=== PATIENT | female | born 1995 | race Caucasian/White ===

== ENCOUNTER 2017-11-27 04:53 | Emergency (ER) | END 2017-11-27 08:14 | disposition home or self-care (01) ==

== ENCOUNTER 2018-08-28 12:39 | Emergency (ER) | END 2018-08-28 17:12 | disposition home or self-care (01) ==

== ENCOUNTER → 2018-08-31 | Outpatient (CLI) | END | disposition home or self-care (01) ==

== ENCOUNTER 2019-04-15 13:44 | Inpatient (IN) | payer MEDICAID ==
[~2019-04-15] VITALS: Ht 152.4 cm; Wt 70.0 kg
[~2019-04-15 13:44] MED LIST: ACET500C5 PO; CEPH-443 PO; ELEC100080 PO; FLUT9.9S NASAL; GUAI5SYR2 PO; IBUP-1542 PO; OSEL75CA23 PO; PREN-39 PO
[2019-04-15 14:25] VITALS: Ht 152.4 cm; Wt 70.0 kg
[2019-04-15 14:28] VITALS: BP 108/57; PULSE 72; RESP 18
[2019-04-15] MEDS ORDERED: CARBOPROST 250 MCG INJ IM PRN ×2 (14:30→23:30)
[2019-04-15] MEDS ORDERED: OXYTOCIN 30 UNITS/LR 500 ML IV PRN ×2 (14:30→23:30)
[2019-04-15] MEDS ORDERED: METHYLERGONOVINE 0.2 MG INJ IM PRN ×2 (14:30→23:30)
[2019-04-15] MEDS ORDERED: CEFAZOLIN 2 GM/50 ML (PMX) 50 ML IVPB ONE (14:30)
[2019-04-15] MEDS ORDERED: MISOPROSTOL 200 MCG TAB PR PRN ×2 (14:30→23:30)
[2019-04-15] MEDS: LACTATED RINGER'S 1,000 ML IV SCH ×2 (14:36→22:25)
[2019-04-15] MEDS ORDERED: OXYTOCIN 30 UNITS/LR 500 ML IV SCH (15:30)
--- NOTE | 2019-04-15 16:45 | PREAC ---
Date/Time of Note Date/Time of Note DATE: 04/15/19 TIME: 16:44 Anesthesia Eval and Record Evaluation Time Pre-Procedure Interview DATE: 04/15/19 TIME: 16:44 Age 23 Sex female NPO: 8 hrs Preoperative diagnosis IUP Planned procedure Repeat Csection Past Medical History Past Medical History: Includes GI: Morbid obesity : : Surgery & Anesthesia Issues No known issue Meds Anticoagulation: No Beta Heber within 24 hr: No Reason Beta Heber not given: Pt. not on B-Heber Active Scripts Cephalexin* (Keflex*) 500 Mg Capsule, 500 MG PO BID for 7 Days, CAP Prov:MARNI BIRMINGHAM-C 08/28/18 Acetaminophen* (Tylophen*) 500 Mg Capsule, 1 CAP PO Q6H PRN for PAIN AND OR ELEVATED TEMP, #20 CAP Prov:MARNI BIRMINGHMA-C 08/28/18 Fluticasone Propionate (Flonase Allergy Relief) 9.9 Ml [place].susp, 2 SPRAY NASAL DAILY, #1 BOTTLE TO EACH NOSTRIL Prov:MARNI BIRMINGHAMC 11/27/17 Electrolyte,Oral (Pedialyte) 1,000 Ml Solution, 100 ML PO Q6 PRN for FEVER, #1000 ML Prov:MARNI BIRMINGHAMC 11/27/17 Ibuprofen* (Motrin*) 600 Mg Tab, 600 MG PO Q6, #30 TAB Prov:MARNI BIRMINGHAM-C 11/27/17 Acetaminophen* (Tylophen*) 500 Mg Capsule, 1 CAP PO Q6H PRN for PAIN AND OR ELEVATED TEMP, #30 CAP Prov:MARNI BIRMINGHAMC 11/27/17 Guaifenesin-Dextromethorphan* (Robitussin* DM) 100MG/10MG/5ML Syrup, 10 ML PO Q6H for 5 Days, ML Prov:MARNI BIRMINGHAMC 11/27/17 Oseltamivir Phosphate* (Tamiflu*) 75 Mg Capsule, 75 MG PO BID for 5 Days, CAP Prov:MARNI BIRMINGHAM-C 11/27/17 Reported Medications Vits W-Ca,Fe,Fa(<1MG) ( Vitamins) 1 Tab Tablet, 1 TAB PO DAILY for 7 Days 05/10/14 Current Medications Lactated Ringer's 1,000 ml @ 125 mls/hr Q8H IV Last administered on 04/15/19at 14:36; Admin Dose 125 MLS/HR; Start 04/15/19 at 14:16 Oxytocin/Lactated Ringer's 500 ml @ 0 mls/hr ONCE PRN IV .VAGINAL BLEEDING; Start 04/15/19 at 14:30 Methylergonovine Maleate (Methergine) 0.2 mg ONCE PRN IM .VAGINAL BLEEDING; Start 04/15/19 at 14:30 Carboprost Tromethamine (Hemabate) 250 mcg ONCE PRN IM .VAGINAL BLEEDING; Start 04/15/19 at 14:30 Misoprostol (Cytotec) 1,000 mcg ONCE PRN [place] .VAGINAL BLEEDING; Start 04/15/19 at 14:30 Oxytocin/Lactated Ringer's 500 ml @ 125 mls/hr POST IV ; Start 04/15/19 at 15:30 Meds reviewed: Yes Allergies Coded Allergies: No Known Allergy (Unverified , 05/10/14) Allergies Reviewed: Yes Labs/Studies Labs Reviewed: Reviewed by anesthesiologist Result Diagram: 04/15/19 1420 Laboratory Tests 04/15/19 14:20 Blood Bank Test 04/15/19 14:20 Antibody Screen NEGATIVE Blood Type O POSITIVE Rh Immune Globulin Candidate NO test: Positive Studies: ECG Pre-procedure Exam Last vitals Vital Signs Date Temp Pulse Resp B/P (MAP) Pulse Ox O2 O2 Flow FiO2 Time Delivery Rate 04/15/19 98.6 72 18 108/57 Room Air 14:28 (74) Airway: Adequate mouth opening, Adequate thyromental dist Mallampati: Mallampati II Teeth: Normal Lung: Normal Heart: Normal ASA Physical Status ASA physical status: 2 Emergency: None Planned Anesthetic Neuraxial: Spinal Planned Pain Management Sub-arachniod narcotics, Parenteral pain med Pre-operative Attestations Prior to commencing anesthesia and surgery, the patient was re-evaluated, there was verification of: *The patient's identity *The results of appropriate recent lab work and preoperative vital signs *The above evaluation not changing prior to induction *Anesthetic plan, risk benefits, alternative and complications discussed with patient/family; questions answered; patient/family understands, accepts and wishes to proceed. JAYLENE MITCHELL MD Apr 15, 2019 16:45
[2019-04-15] MEDS ORDERED: morphine SULFATE/PF (10 MG/10 ML) INJ ONE (16:51)
[2019-04-15] MEDS ORDERED: ONDANSETRON 4 MG INJ ONE (16:51)
[2019-04-15] MEDS ORDERED: OXYTOCIN 10 UNIT INJ ONE ×2 (16:51→17:44)
[2019-04-15] MEDS ORDERED: PHENYLephrine 10 MG INJ ONE (17:00)
--- NOTE | 2019-04-15 17:08 | HP ---
Date/Time of Note Date/Time of Note DATE: 04/15/19 TIME: 17:05 OB - History Hx of Present Free Text/Dictation 23-year-old female 2 para 1 at 39 weeks and 2 days gestation admitted for repeat section Last Menstrual Period: Jul 14, 2018 Estimated Due Date: Apr 20, 2019 : 2 Para: 1 Care: Good Care Ultrasounds: Normal mid trimester US Obstetrical Complications: None Medical Complications: None Past Family/Social History * Past Medical, Surgical, Family and Obstetric Histories reviewed from chart. Blood Type: O+ Rubella: immune RPR/VDRL: Negative GBS Status: Negative HBsAG: Negative OB Admission Exam Vital Signs Vital Signs Vital Signs Date Temp Pulse Resp B/P (MAP) Pulse Ox O2 O2 Flow FiO2 Time Delivery Rate 04/15/19 98.6 72 18 108/57 Room Air 14:28 (74) Physical Exam HEENT: WNL Heart: Rhythm Normal Lungs: Clear, Equal Abdomen: WNL Extremities: Normal Reflexes: Normal Cervical Dilatation: None Effacement: 0% Station: -3 Membranes: Intact Heart Rate: 140's Accelerations: Accelerations Present Decelerations: No Decelerations Varibility: Marked Contractions on Admission: None Last 72 hours Lab Results CBC & BMP 04/15/19 14:20 OB Assessment/Plan Other Assessment: Term gestation Previous Other plan: Repeat delivery JANAE VASQUEZ MD Apr 15, 2019 17:08
[2019-04-15] MEDS ORDERED: FENTAnyl 50 MCG/ML VIAL ONE (17:36)
--- NOTE | 2019-04-15 18:25 | OPR ---
Operative Report Planned Procedure Procedure date Apr 15, 2019 Procedure(s) Repeat section Performed by see signature line Excavating Contractor: CEASAR SWANSON MD Anesthesiologist: JAYLENE MITCHELL MD Pre-procedure diagnosis Term gestation Previous [id number] Anesthesia Type: Lotdk1t spinal Post-Procedure Post-procedure diagnosis Status post repeat Findings Live Baby in OT position Clear amniotic fluid Normal-appearing right and left fallopian tubes and ovaries Estimated Blood Loss: 500 - 600 mls Specimen(s) none Grafts/Implant(s) none Complication(s) none Pt Condition post procedure: stable Disposition: PACU Procedure Description Under satisfactory anaesthesia a Pfannenstiel incision was made two fingerbreadth above and parallel to the symphysis of pubis around the previous scar and previous scar was removed Incision was extended laterally to the border of the Recti muscles on either sides. Incision was carried down with sharp and blunt dissection until fascia was reached. Anterior Recti muscle fascia was incised in mid portion and incision extended laterally to the border of skin incision. Fascia was mobilized from muscle superiorly and Recti muscles were from midline using sharp and blunt dissection. Peritoneum was visualized; Avoiding bowel and bladder it was incised . Incision was extended superiorly and inferiorly. Bladder blade was placed. Posterior peritoneum covering the lower segment of the uterus and lower segment of the uterus were incised.Low transverse uterine incision was made on lower segment of the uterus. Incision extended laterally to the border of Round Lig. on either sides and baby was delivered from OT. position . Amniotic fluid appeared clear. Cord blood was obtained and cord had 3 vessels . Placenta was delivered spontaneously and appeared intact and complete. Intrauterine cavity was rubbed with a laparotomy sponge. Uterine incision was closed in 2 layers using running stitches of No1 Monocryl. Hemostasis appeared secure. Ovaries and Fallopian tubes were within normal limits. Announcing needle, lap sponge and instrument count to be correct abdomen was closed in layers as follows: Peritoneum and Recti muscles with running stitches of 2-0 Vicryl. Fascia with running stitch of No 1 PDS. Subcutaneous tissue with running stitches of 2-0 Monocryl and skin was closed using destiny. Patient tolerated the procedure well and was transferred to [facility] in good c ondition. JANAE VASQUEZ MD Apr 15, 2019 18:25
[2019-04-15] MEDS ORDERED: KETOROLAC 30 MG INJ IV STA (18:26)
[2019-04-15] MEDS ORDERED: ACETAMINOPHEN 500 MG TAB PO STA (18:26)
[2019-04-15] MEDS ORDERED: AZITHROMYCIN 500MG/NS (PMX) 250 ML IVPB ONE ×2 (18:30→20:00)
--- NOTE | 2019-04-15 18:33 | PAC ---
Date/Time of Note Date/Time of Note DATE: 04/15/19 TIME: 18:32 Post-Anesthesia Notes Post-Anesthesia Note Last documented vital signs Vital Signs Date Temp Pulse Resp B/P (MAP) Pulse Ox O2 O2 Flow FiO2 Time Delivery Rate 04/15/19 98.6 72 18 108/57 Room Air 14:28 (74) Activity: WNL Respiratory function: WNL Cardiovascular function: WNL Mental status: Baseline Pain reasonably controlled: Yes Hydration appropriate: Yes Nausea/Vomiting absent: Yes Comments BP:112/56, P:88, Spo2:100%, T:98,8 JAYLENE MITCHELL MD Apr 15, 2019 18:33
[2019-04-15] MEDS ORDERED: KETOROLAC 30 MG INJ IV PRN (19:00)
[2019-04-15] MEDS ORDERED: DIPHENHYDRAMINE 50 MG INJ IV PRN (19:00)
[2019-04-15] MEDS ORDERED: morphine 2 MG INJ IV PRN (19:00)
[2019-04-15] MEDS ORDERED: ONDANSETRON 4 MG INJ IV PRN (19:00)
[2019-04-15] MEDS ORDERED: NALOXONE (0.4 MG/ML) INJ IV PRN (19:00)
[2019-04-15 22:35] VITALS: BP 90/43; PULSE 61; RESP 18
[2019-04-15] MEDS ORDERED: LACTATED RINGER'S 1,000 ML IV SCH (23:05)
[2019-04-15] MEDS ORDERED: LANOLIN HPA 1 PKT TOP PRN (23:30)
[2019-04-15] MEDS ORDERED: OXYCODONE/ACETAMINOPHEN (5/325) TAB PO PRN (23:30)
[2019-04-15] MEDS ORDERED: NA PHOSPHATE/BIPHOS 133 ML ENEMA PR PRN (23:30)
[2019-04-15] MEDS ORDERED: HYDROCODONE/APAP (5/325) TAB PO PRN (23:30)
[2019-04-16] VITALS: BP 82/43; PULSE 61; RESP 18
[2019-04-16] MEDS: CLINDAMYCIN 300 MG CAP PO SCH ×4 (00:55→18:15)
[2019-04-16] MEDS: CEFAZOLIN 2 GM/50 ML (PMX) 50 ML IVPB SCH ×3 (00:55→15:34)
[2019-04-16 04:16] VITALS: BP 81/51; PULSE 60; RESP 18
[2019-04-16 08:00] VITALS: BP 94/56; PULSE 55; RESP 18
[2019-04-16] MEDS ORDERED: LACTATED RINGER'S 1,000 ML IV SCH (08:10)
[2019-04-16] MEDS: SENNA/DOCUSATE NA (8.6MG/50MG) TAB PO SCH ×2 (08:41→21:58)
[2019-04-16] MEDS ORDERED: BISACODYL 10 MG SUPP PR ONE (10:30)
[2019-04-16 12:00] VITALS: BP 98/59; PULSE 70; RESP 18
--- NOTE | 2019-04-16 15:11 | PN ---
Date/Time of Note Date/Time of Note DATE: 04/16/19 TIME: 15:11 Assessment/Plan VTE Prophylaxis VTE Prophylaxis Intervention: ambulation Lines/Catheters IV Catheter Type (from Nrs): Saline Lock Assessment/Plan Assessment/Plan Status post postop day #1 Continue to ambulate patient Continue to advance diet Continue with supportive care Subjective 24 Hr Interval Summary Passing flatus but no bowel movement Constitutional: no complaints, improved, ambulates, BM, flatus, urine output Pain Control: well controlled Exam/Review of Systems Vital Signs Vitals Vital Signs Date Temp Pulse Resp B/P (MAP) Pulse Ox O2 O2 Flow FiO2 Time Delivery Rate 04/16/19 98.1 70 18 98/59 (72) 98 Room Air 12:00 Intake and Output 04/15/19 04/15/19 04/16/19 1515:00 23:00 07:00 IntakeIntake Total 250 ml OutputOutput Total 720 ml 180 ml BalanceBalance -470 ml -180 ml Exam Free Text/Dictation Abdomen is soft bowel sounds are present and abdomen does not seem distended Incision is covered Constitutional: alert, oriented, well developed Psych: no complaints, nl mood/affect Head: normocephalic, atraumatic Eyes: nl conjunctiva, EOMI, nl lids, nl sclera ENMT: nl external ears & nose, nl lips & teeth, nl nasal mucosa & septum, mucosa pink and moist Neck: supple, non-tender Respiratory: clear to auscultation, normal air movement Cardiovascular: regular rate and rhythm, nl pulses Gastrointestinal: soft, nl liver, spleen, non-tender Musculoskeletal: nl extremities to inspection, nl gait and stance Extremities: normal pulses Neurological: NATURAL GAS ENGINEER II-XII intact, nl mental status, nl speech, nl strength Skin: nl turgor, rash or lesions Lymph: nl lymph nodes Results Result Diagram: 04/16/19 0720 JANAE VASQUEZ MD Apr 16, 2019 15:11
[2019-04-16 16:00] VITALS: BP 89/53; PULSE 70; RESP 18
[2019-04-16] MEDS ORDERED: HYDROCODONE/APAP (5/325) TAB PO PRN (18:59)
[2019-04-16 20:45] VITALS: BP 99/60; PULSE 82; RESP 18
[2019-04-16] MEDS: IBUPROFEN 800 MG TAB PO SCH (21:58)
[2019-04-17] MEDS: CLINDAMYCIN 300 MG CAP PO SCH ×4 (00:54→17:59)
[2019-04-17] MEDS ORDERED: BISACODYL 10 MG SUPP PR ONE (01:30)
[2019-04-17 03:44] VITALS: BP 105/60; PULSE 67; RESP 17
[2019-04-17] MEDS: IBUPROFEN 800 MG TAB PO SCH ×3 (05:40→21:17)
[2019-04-17 08:00] VITALS: BP 96/52; PULSE 65; RESP 18
[2019-04-17] MEDS: SENNA/DOCUSATE NA (8.6MG/50MG) TAB PO SCH ×2 (08:38→21:16)
--- NOTE | 2019-04-17 13:50 | DS ---
Date/Time of Note Date/Time of Note Home today or next day DATE: 04/17/19 TIME: 13:49 Obstetrical Discharge Record Final Diagnosis Final Diagnosis: Term delivered Other Final Diagnosis Status post Section Section: Repeat Condition on Discharge Physical Assessment Last Vitals: See nurse's notes Voiding: Yes Bowel Movement: Yes Breast: Soft, non-tender, Filling Fundus: Firm Abdomen and Incision: Abdomen is soft and nontender Incision is healing well without induration and or erythema Calf Tenderness: No Patient Condition: Good JANAE VASQUEZ MD Apr 17, 2019 13:50
--- NOTE | 2019-04-17 13:57 | DS ---
Date/Time of Note Date/Time of Note DATE: 04/17/19 TIME: 13:50 Discharge Summary Admission/Discharge Info Admit Date/Time Apr 15, 2019 at 13:44 Discharge Date/Time April 17April 182018 Discharge Diagnosis Status post delivery Patient Condition: Good Procedures Repeat section Hx of Present Illness 23-year-old female had repeat section Hospital Course He had uncomplicated hospitalization course Was tolerating diet well ambulating without problems Discharge home on his second or third day with good prognosis and condition fully ambulatory on regular diet Home Meds Active Scripts Cephalexin* (Keflex*) 500 Mg Capsule, 500 MG PO BID for 7 Days, CAP Prov:MARNI BIRMINGHAM-C 08/28/18 Acetaminophen* (Tylophen*) 500 Mg Capsule, 1 CAP PO Q6H PRN for PAIN AND OR ELEVATED TEMP, #20 CAP Prov:MARNI BIRMINGHAM-C 08/28/18 Fluticasone Propionate (Flonase Allergy Relief) 9.9 Ml [place].susp, 2 SPRAY NASAL DAILY, #1 BOTTLE TO EACH NOSTRIL Prov:MARNI BIRMINGHAM-C 11/27/17 Electrolyte,Oral (Pedialyte) 1,000 Ml Solution, 100 ML PO Q6 PRN for FEVER, #1000 ML Prov:MARNI BIRMINGHAM-C 11/27/17 Ibuprofen* (Motrin*) 600 Mg Tab, 600 MG PO Q6, #30 TAB Prov:MARNI BIRMINGHAM-C 11/27/17 Acetaminophen* (Tylophen*) 500 Mg Capsule, 1 CAP PO Q6H PRN for PAIN AND OR ELEVATED TEMP, #30 CAP Prov:MARNI BIRMINGHAM-C 11/27/17 Guaifenesin-Dextromethorphan* (Robitussin* DM) 100MG/10MG/5ML Syrup, 10 ML PO Q6H for 5 Days, ML Prov:MARNI BIRMINGHAM-C 11/27/17 Oseltamivir Phosphate* (Tamiflu*) 75 Mg Capsule, 75 MG PO BID for 5 Days, CAP Prov:MARNI BIRMINGHAMC 11/27/17 Reported Medications Vits W-Ca,Fe,Fa(<1MG) ( Vitamins) 1 Tab Tablet, 1 TAB PO DAILY for 7 Days 05/10/14 Follow-up Plan She was asked to refer to clinic in 4 days for staple removal Primary Care Provider Care Physician No Primary Time spent on discharge: > 30 minutes JANAE VASQUEZ MD Apr 17, 2019 13:57
--- NOTE | 2019-04-17 13:59 | PD.PPDC ---
TOOL WORKER Discharge Instruction Provider Information Physician Information 23-year-old female had repeat section Diagnosis [id number] Final Diagnosis: Sswwq8w Status post Condition [id number] Patient Condition: Fwrxl9l Good Diet Lhksd3Nt Diet: Twoge5z Resume Regular Diet Activity/Restrictions Ubgzl4Jg Activity: Nuzqc2k May Shower Gzfsh8Dd Restrictions: Gvaek5q No Exercising No Lifting Nothing in the Vagina Yhilx4Is Return to Work or School: Txush4x Jun 17, 2019 Wound/Drain Care Instructions [id number] Wound/Drain Care Instructions: Ytwem6b Keep clean and dry Follow-up Follow-up with Physician: 4, Day/Days (In clinic for staple removal) Return to clinic for Fxtnc9Cn BUSINESS PROCESS REPRESENTATIVE Instructions: Winim9p Fever greater than 101 Chills Mzvcr2Jq OB Instructions: Crzmf5v Breast Tenderness Depression Comment: Pelvic rest no hard activity for 2 months Ekmur4Vt Surgical Instructions: Hstsy2u Incisional Drainage Incisional Redness JANAE VASQUEZ MD Apr 17, 2019 13:59
[2019-04-17] MEDS ORDERED: ACETAMINOPHEN 325 MG TAB PO PRN (14:00)
[2019-04-17] MEDS ORDERED: ACET325T33 PO (14:00)
[2019-04-17] MEDS ORDERED: IBUP800T48 PO (14:01)
[2019-04-17 15:37] VITALS: BP 102/74; PULSE 66; RESP 18
[2019-04-17 20:05] VITALS: BP 108/68; PULSE 62; RESP 18
[2019-04-18] MEDS: CLINDAMYCIN 300 MG CAP PO SCH ×3 (00:24→11:59)
[2019-04-18 04:10] VITALS: BP 105/57; PULSE 67; RESP 18
[2019-04-18] MEDS: IBUPROFEN 800 MG TAB PO SCH (05:48)
[2019-04-18 08:00] VITALS: BP 100/55; PULSE 72; RESP 18
[2019-04-18] MEDS: SENNA/DOCUSATE NA (8.6MG/50MG) TAB PO SCH (09:00)
[2019-04-18] MEDS ORDERED: DIPHTH/TET/ACEL PERTUSS (ADULT) 0.5 ML VIAL IM* ONE (09:00)
[2019-04-18] MEDS ORDERED: MEASLES,MUMPS,RUBELLA VACCINE INJ SC* ONE (09:00)
--- NOTE | 2019-04-19 14:05 | DELSUM ---
Delivery Summary A-C Datetime Report Generated by N: 04/19/2019 14:05 DELIVERY PERSONNEL Patient Access Coordinator: RONI, BANDAR MATERNAL INFORMATION Delivery Anesthesia: Spinal Medications in Delivery: SEE ANESTHESIA NOTE Delivery QBL (ml): 600 Placenta Cultured: No Maternal Complications: None LABOR SUMMARY EDC: 04/20/2019 00:00 (Annotations: Data stored by [facility] on behalf of user) No. Babies in Womb: 1 Attempted: No Labor Anesthesia: None LABOR INFORMATION Reason for Induction: Not Applicable Oxytocin: N/A Group B Beta Strep: Positive Antibiotics # of Doses: 1 Antibiotics Time of Last Dose: 04/15/2019 16:50 Steroids Given: None Reason Steroids Not Administered: Not Applicable MEMBRANES Membranes Rupture Method: Artificial Rupture of Membranes: 04/15/2019 17:33 Length of Rupture (hr): 0.03 Amniotic Fluid Color: Clear Amniotic Fluid Amount: Small Amniotic Fluid Odor: Normal STAGES OF LABOR Stage 3 hr: 0 Stage 3 min: 1 CSECTION DELIVERY Primary Indication: Repeat Elective CSection Urgency: Elective CSection Incidence: Repeat Labor: No Labor Elective: Nonelective CSection Incision: Lower Uterine Transverse BABY A INFORMATION Delivery Date/Time: 04/15/2019 17:35 Method of Delivery: Born in Route : No : N/A Forceps: N/A Vacuum Extraction: Successful Shoulder Dystocia : No ASSISTED DELIVERY BABY A Catheter Prior to Procedure: Yes Vacuum Number of Pulls: 2 Vacuum Number of PopOffs: 1 Vacuum Inspector Printed Circuit Boards: [place] Total Time Vacuum Applied: 50 SECS Vacuum/Forceps Comment: CONTROLLED BY MD SHOULDER DYSTOCIA BABY A Delivery Date/Time: 04/15/2019 17:35 PRESENTATION/POSITION BABY A Presentation: Cephalic Cephalic Presentation: Vertex Vertex Position: N/A Breech Presentation: N/A PLACENTA INFORMATION BABY A Placenta Delivery Time : 04/15/2019 17:36 Placenta Method of Delivery: Manual Removal Placenta Status: Delivered SCORES BABY A Heart Rate 1 min: >100 bpm Resp Effort 1 min: Good Cry Reflex Irritability 1 min: Cough/Sneeze/Pulls Away Muscle Tone 1 min: Active Motion Color 1 min: Blue/Pale Resuscitation Effort 1 min: Tactile Stimulation; Oxygen SCORE 1 MIN: 8 Heart Rate 5 min: >100 bpm Resp Effort 5 min: Good Cry Reflex Irritability 5 min: Cough/Sneeze/Pulls Away Muscle Tone 5 min: Active Motion Color 5 min: Body [place], Extremit Blue Resuscitation Effort 5 min: Tactile Stimulation SCORE 5 MIN: 9 INFORMATION BABY A Gestational Age at Delivery: 39.2 Gestational Status: Full Term- 39- 40.6 Weeks Outcome : Liveborn Condition : Stable Sex: Female IDENTIFICATION/MEDS BABY A ID Band Number: [id number] ID Band Location: Right Leg; Left Arm Sensor Applied: Yes Sensor Number: [id number] Sensor Location : Cord Clamp Vitamin K Given : Not Given Erythromycin Given: Not Given WEIGHT/LENGTH BABY A Birthweight (gm): 3460 Weight (lb): 7 Weight (oz): 10 Length (in): 21.00 Infant Length (cm): 53.34 CORD INFORMATION BABY A No. Cord Vessels: 3 Nuchal Cord : N/A Cord Blood Taken: Yes Infant Suction: Mouth; Nose ASSESSMENT BABY A Complications: None Physical Findings at Delivery: Within Normal Limits Infant Respirations: Appears Normal Knapsack Sprayer/ALS Called : Yes Infant Care By: RT Transferred To: Remains with Mother
== END 2019-04-18 13:05 | disposition home or self-care (01) | DRG 788 ==
LOC: L-D 13:44 → PP1 22:15
PROVIDERS: ADMIT Obstetrics & Gynecology; ATTEND Obstetrics & Gynecology
PROC: 0HB7XZZ Excision of Abdomen Skin, External Approach (ICD-10-PCS; 2019-04-15)
PROC: 10D00Z1 Extraction of Products of Conception, Low, Open Approach (ICD-10-PCS; principal; 2019-04-15 15:30)
DX: O34.211 Maternal care for low transverse scar from previous cesarean delivery (principal); O99.214 Obesity complicating childbirth; E66.01 Morbid (severe) obesity due to excess calories; Z3A.39 39 weeks gestation of pregnancy; Z37.0 Single live birth
CPT/HCPCS: 85025; 85610; 85730; 86592; 86850; 86900; 86901; 87340; 99464; J0456; J0690; J1200; J1885; J2274; J2370; J2405; J2590; J3010; J7120